=== PATIENT | female | born 1940 | race Caucasian/White ===

== ENCOUNTER 2017-11-06 14:54 | Emergency (ER) | payer MEDICARE, OTHER, SELFPAY ==
[2017-11-06 14:55] VITALS: BP 136/71; PULSE 98; RESP 16; TEMP 36.7; O2SAT 95; BMI 27.4
--- NOTE | 2017-11-06 15:14 | EKG12_ITS ---
Test Reason : AB PAIN Blood Pressure : / mmHG Vent. Rate : 100 BPM Atrial Rate : 100 BPM P-R Int : 138 ms QRS Dur : 076 ms QT Int : 352 ms P-R-T Axes : -07 -28 016 degrees QTc Int : 454 ms Normal sinus rhythm Inferior infarct , age undetermined Abnormal ECG Confirmed by MARIAH LANCE ([id number]), video tape editor REGLA DOE ([id number]) on 11/17/2017 6:22:57 PM Referred By: RAFAEL Confirmed By:MARIAH LANCE
--- NOTE | 2017-11-06 15:15 | RAD_ITS ---
STUDY: X-RAY CHEST REASON FOR EXAM: Female, 77 years old. Weakness. TECHNIQUE: Single AP portable view of the chest. COMPARISON: None. FINDINGS: Increased linear markings at the lung bases likely worse on the left side suggestive of linear atelectasis and/or scarring. There is no demonstrated pleural abnormality. There is mild cardiac enlargement. Normal mediastinum and hillary. Normal visualized pulmonary arteries. There is atherosclerotic calcification of the aortic arch with tortuosity. There are degenerative changes of the visualized thoracic spine. Prior vertebroplasty of the T12 vertebrae. Normal visualized ribs, clavicles, and shoulders. There is no demonstrated abnormality of the visualized soft tissue structures of the upper abdomen. RAD/Chest 1 View (Portable) IMPRESSION: Mild degree of increased linear markings at the lung bases slightly worse on the left side suggestive of linear atelectasis and/or scarring. Electronically Signed: Gerard Gonzalez MD at 15:32 EDT Tel [phone], Service support ,
--- NOTE | 2017-11-06 15:35 | CT_ITS ---
STUDY: CT ABDOMEN AND PELVIS WITH CONTRAST REASON FOR EXAM: Female, 77 years old. Left lower quadrant pain RADIATION DOSAGE (If Supplied By Facility): CTDIvol = ( 14.13 ) mGy, DLP = ( 845.92 ) mGycm TECHNIQUE: Transaxial images were obtained from the dome of the diaphragm to the symphysis pubis with oral contrast. 100 ml of Isovue 300 contrast was administered. Sagittal and coronal images were reconstructed. Individualized dose optimization techniques were used for this CT. COMPARISON: 11/06/2016 FINDINGS: There is atelectasis at the lung bases. The visualized portions of the heart and pericardium are within normal limits. There are no calcified gallstones present. The liver is within normal limits. There are no suspicious hepatic lesions. The spleen is normal in size. The pancreas is within normal limits. The adrenal glands are within normal limits. There are no obstructing renal stones. There is no hydronephrosis. There are no focal renal lesions. There is a stable small hiatal hernia. There is no bowel obstruction or inflammation. There are stable colonic diverticula without evidence of diverticulitis. The patient is status post appendectomy. There is a stable small fat-containing umbilical hernia. The aorta is normal in caliber. There is no abdominal or pelvic free air, free fluid, fluid collection or lymphadenopathy. The patient is status post hysterectomy. There are no destructive osseous lesions. There is vertebroplasty cement in the T12 vertebral body. CT/Abdomen/Pelvis WITH Contrast IMPRESSION: No acute abdominal or pelvic pathology. No significant change when compared with 11/06/2016. Electronically Signed: Tenzin Garcia, at 17:43 EDT Tel , Service support ,
[2017-11-06] MEDS: Morphine 4 MG/ML Syringe IV (15:43)
[2017-11-06] MEDS: 0.9% Normal Saline 1,000 ML 150 ML IV (15:43)
[2017-11-06] MEDS: Ondansetron 4 MG/2 ML Vial IV (15:43)
[2017-11-06 15:44] LABS: Absolute Lymphocyte Count 0.63 X10^3/ul (0.83-4.51); Absolute Neutrophil Count 13.1 X10^3/uL (2.0-7.7); Basophil# 0.02 X10^3/uL; Basophil% 0.1 % (0-1); Eosinophil# 0.01 X10^3/uL; Eosinophils% 0.1 % (0-5); Hematocrit 41.3 % (37-47); Hemoglobin 13.8 g/dl (12.0-15.0); Lymphocyte # 0.63 X10^3/ul (4.0); Lymphocyte % 4.3 % (19-41); Mean Corp Hgb Conc 33.4 g/gl (32-36); Mean Corpuscular Hgb 28.4 pg (27.0-32.0); Mean Platelet Vol. 10.4 fl (6.2-12.0); Monocyte# 0.91 X10^3/uL; Monocyte% 6.2 % (0-10); Neutrophil # 13.06 X10^3/uL (2.7-7.7); Neutrophil % 89.1 % (47-70); Platelet Count 291 K/mm3 (150-450); RBC Distribution Width CV 15.5 % (11.6-14.6); RBC Distribution Width SD 47.8 fl (35.1-43.9); Red Blood Count 4.86 M/mm3 (4.2-5.4); White Blood Count 14.7 K/mm3 (4.4-11.0)
[2017-11-06 16:04] LABS: POSITIVE COUNT NO; POSITIVE DIFFERENTIAL NO; POSITIVE MORPHOLOGY NO
[2017-11-06 16:06] LABS: AST(SGOT) 14 U/L (15-37); Alanine Aminotransfer ALT/SGPT 12 U/L (13-56); Albumin, Serum 3.5 g/dL (3.2-5.0); Alkaline Phosphatase 75 U/L (45-117); Anion Gap 6 (5-15); BUN 14 mg/dL (7-18); BUN/Creat Ratio 18.2 RATIO (10-20); Calcium,Total 9.1 mg/dL (8.5-10.1); Chloride 102 mmol/L (98-107); Creatinine, Serum 0.77 mg/dL (0.55-1.02); EST Glomerular Filtration Rate 77 mL/min (>60); Est Glom Filt Rate - Afr Amer 93 mL/min (>60); Estimated Creatinine Clearance 36.08 ml/min; Globulin 3.6 g/dL (2.2-4.2); Glucose 120 mg/dL (74-106); Lipase 55 U/L (73-393); Potassium 3.7 mmol/L (3.5-5.1); Protein, Total 7.1 g/dL (6.4-8.2); Sodium Level 137 mmol/L (136-145); Thyroid Stim Hormone (TSH) 3.35 uIU/mL (0.358-3.74)
[2017-11-06 16:22] LABS: Lactic Acid 1.1 mmol/L (0.4-2.0)
[2017-11-06 17:41] LABS: Bacteria 0 SEEN /hpf (None Seen); Mucous, Urine 0 SEEN /hpf (<or=2+); Red Blood Cells-Urine 0 SEEN /hpf (0-5); Squamous Epithelial Cells - UA 0 SEEN /hpf (5-10); White Blood Cells 0 SEEN /hpf (0-5)
[2017-11-06 18:35] LABS: Color, Urine Yellow (Yellow); Glucose, Dipstick Normal (Normal); Ketone-Dipstick Negative (Negative); Leukocyte Esterase-Dipstick Negative /ul (Negative); Nitrite-Dipstick Negative (Negative); Occult Blood-Urine 10 /ul (Negative); Protein-Dipstick Negative (Negative); Urine Bilirubin Dipstick Negative (Negative); Urine Clarity Clear (Clear); Urine Urobilinogen Normal (Normal)
--- NOTE | 2017-11-06 18:43 | ED.VISSUMM ---
- ER Visit Summary Date of Service: 11/06/17 Chief Complaint: [Abdominal pain and generalized weakness] History of Present Illness: The patient is a 77 F [presents the emergency department with complaint of not feeling well since yesterday. Patient's had some intermittent abdominal discomfort that is diffuse to the lower abdomen. Today while at the [employer] she had a hard time keeping her head up apparently was very weak and needed assistance from her to get into the car. Once at home she sat in the car for about an hour and a half because she was too weak to go inside. Patient denies any chest pain. She denies any shortness of breath. She denies any headaches. She denies focal weakness.] Patient states that her abdominal pains been going on for years and no etiology is ever been found. Patient also states that she was down in [place] earlier in the year and had an episode of weakness like this that lasted about 3 weeks but she did not seek any medical attention. Physical Examination: [HEENT-PERRLA, EOMI. Cranial nerves II through XII grossly intact. TMs clear. Mucous membranes moist. No adenopathy. Cardiovascular-regular rate and rhythm without murmur or ectopy Lungs-clear to auscultation, chest wall stable without crepitus or subcu emphysema Abdomen-normoactive bowel sounds, soft. Mild diffuse tenderness to the lower abdomen left lower quadrant and right lower quadrant as well as suprapubic area. There is no rebound, rigidity, or perineal signs. Extremities-intact ?4, normal range of motion, normal pulses, atraumatic] Test Results: [CBC with differential obtained showed an elevated white count of 14.7, hemoglobin 13.8, hematocrit 41.3, platelets 291. Chemistries unremarkable. LFTs were normal. Urinalysis was normal. Troponin was less than 0.015. EKG obtained arrival shows sinus rhythm with a ventricular rate of 100 bpm with some nonspecific ST changes. TSH was 3.35. CT scan of the abdomen pelvis showed nothing significant.] Emergency Department Course and Treatment: [Patient was able to ambulate in the department without difficulty.] Treatment Plan: [Patient will be discharged home. Patient has a follow-up appointment with her primary care physician on November 13.] Disposition: [Discharged home in stable condition] Impression: [Generalized weakness Abdominal pain-etiology uncertain.] This note was generated with Dragon dictation software. It may contain incorrect words, spelling, and punctuation that were not noted in review of the chart prior to signing ED Disposition - Plan for ED Patient: Chief Complaint: Abd Pain Referrals: Declan Montalvo Chi, MD [Primary Care Provider] -
[2017-11-06 18:46] VITALS: BP 124/96; PULSE 72; RESP 16; O2SAT 96
--- NOTE | 2017-11-06 18:46 | ED.DEP ---
ED Disposition - Plan for ED Patient: Chief Complaint: Abd Pain Instructions: ED Abdominal Pain Unkn Cause, ED Weakness [facility] Referrals: Declan Montalvo Chi, MD [Primary Care Provider] - 5-7 Days
[2017-11-06 18:50] VITALS: BP 124/76; PULSE 72; RESP 16; O2SAT 96
== END 2017-11-06 18:55 | disposition home or self-care (01) ==
PROVIDERS: Emergency Provider Emergency Medicine; Family Provider Family Medicine Geriatric Medicine; PCP Family Medicine Geriatric Medicine
DX: R10.84 Generalized abdominal pain (principal); R53.1 Weakness; I10 Essential (primary) hypertension; E78.00 Pure hypercholesterolemia, unspecified; Z79.899 Other long term (current) drug therapy
CPT/HCPCS: 71045; 74177; 80053; 81001; 83605; 83690; 84443; 84484; 85025; 93005; 96361; 96374; 96375; 99285; J7030; Q9967; A4216; J2405

== ENCOUNTER → 2017-11-18 11:03 | Outpatient (CLI) | payer MEDICARE, OTHER, SELFPAY ==
--- NOTE | 2017-11-18 10:19 | LES_PTH ---
PATIENT: NADEEN SALVADOR LOC: [facility] U#:[id number] AGE/SX: 85/F ROOM: RE11/18/[address]: Dr. Declan Montalvo MD : 1940 BED: DIS: SPEC #: [id number] RECD: 11/18/17 12:33 STATUS: COOPER TANO #: [id number] NICOLAS: 11/18/17 10:[address]: Declan Montalvo Chi DEPT: SURGICAL PATHOLOGY RECD BY: Sam Gray Tissues: Skin of arm Procedures: Surgery Specimen Level IV HEADER OPERATION: Not noted PRE-OP DIAGNOSIS: L98.9 TISSUE SUBMITTED: Right forearm MICROSCOPIC DIAGNOSIS Right forearm lesion, biopsy: Actinic keratosis with moderate to severe squamous atypia with overlying cutaneous horn. Solar elastosis. SJ:diego 11/19/17 COMMENT The lesion appears to be completely excised. Case has been reviewed in consultation with Dr. Villanueva who concurs with the above diagnosis. IDC:AM MICROSCOPIC DESCRIPTION Slides are reviewed. GROSS DESCRIPTION Received is one container labeled with the patient's name and not further designated. The specimen consists of round piece of skin measuring 1.8 x 1.5 x 0.5 cm. There is a raised, cutaneous horn-like brownish-black lesion on the surface measuring 1 x 0.7 x 0.5 cm. The specimen is inked, serially sectioned and submitted entirely in one cassette. / SJ:rg 11/18/17 TC:5 CPT: 44714
== END ==
PROVIDERS: Family Provider Family Medicine Geriatric Medicine; PCP Family Medicine Geriatric Medicine; Visit Provider Family Medicine Geriatric Medicine
DX: L98.9 Disorder of the skin and subcutaneous tissue, unspecified (principal)
CPT/HCPCS: 88305

== ENCOUNTER → 2017-12-05 08:59 | Outpatient (CLI) | payer MEDICARE, OTHER, SELFPAY ==
--- NOTE | 2017-12-05 09:03 | US_ITS ---
STUDY: ABDOMINAL ULTRASOUND - RIGHT UPPER QUADRANT REASON FOR VISIT: Female, 77 years old. Abdominal pain. TECHNIQUE: Ultrasound evaluation of the right upper quadrant was performed with real-time and static felix-scale imaging. TECHNICAL QUALITY: Adequate. COMPARISON: None. FINDINGS: Liver: The liver measures 12.6 cm. There is normal echogenicity of the liver. The bile ducts are within normal limits. There is hepatic color flow. The direction of portal flow is hepatopetal. There is no demonstrated mass lesion. Gallbladder: Normal distended gallbladder. The gallbladder wall measures 2.0 mm. There is a negative sonographic Mccarty's sign. There is no pericholecystic fluid. There are multiple small echogenic structures within the gallbladder, consistent with multiple gallstones. Common Bile Duct (C.B.D.): The common bile duct measures 3.0 mm. Pancreas: Normal size of the head, body and tail of the pancreas. There is normal echogenicity of the pancreas. There is no demonstrated pancreatic mass or cyst. Right Kidney: Normal size of the right kidney. The right kidney measures 9.4 cm x 4.5 cm x 5.6 cm. Normal renal cortex. The right cortex measures 1.5 cm. There is no demonstrated renal mass or cyst. There is no right hydronephrosis. US/Abdomen Limited IMPRESSION: Multiple small gallstones. Electronically Signed: Gerard Gonzalez MD at 15:27 EDT Tel [phone], Service support ,
== END ==
PROVIDERS: Family Provider Family Medicine Geriatric Medicine; PCP Family Medicine Geriatric Medicine; Visit Provider Family Medicine Geriatric Medicine
DX: K80.80 Other cholelithiasis without obstruction (principal)
CPT/HCPCS: 76705

== ENCOUNTER → 2017-12-11 09:44 | Outpatient (CLI) | payer MEDICARE, OTHER, SELFPAY ==
--- NOTE | 2017-12-11 09:45 | NM_ITS ---
CLINICAL: 77 year old female with history of right upper quadrant pain. RADIONUCLIDE HEPATOBILIARY SCINTIGRAPHY COMPARISON: Abdominal ultrasound report 12/05/2017, CT of the abdomen and pelvis report 11/06/2017 FINDINGS: Following the intravenous administration of 5.1 mCi of 99m Tc Mebrofenin, hepatobiliary images reveal: 1. Relatively prompt and homogeneous radiopharmaceutical concentration is noted by a normal sized liver. No parenchymal defects are identified. 2. Gallbladder activity is not identified during 60 minutes of sequential imaging. Gallbladder activity is identified at 120 minutes post radiopharmaceutical provision. 3. Small intestinal tract is observed at 45 minutes post radiopharmaceutical administration. 4. Washout of the radiopharmaceutical by the hepatic parenchyma appears qualitatively normal. NM/Hepatobilliary Img w/Pharm Int IMPRESSION: 1. ABNORMAL 99m Tc Mebrofenin hepatobiliary imaging examination. A. Nonvisualization of the gallbladder at 60 minutes post-radiopharmaceutical administration with visualization noted at 120 minutes post tracer provision is most consistent with a component of chronic cholecystitis in patients who have fasted for more than 4 and less than 24 hours, with an intermediate to high pretest probability of hepatobiliary illness and retained normal hepatocellular function. (Darrius and Juliet Steele, J Nucl Med 21: P17, 1980). Electronically Signed: Larry Haddad DO at 9:58 EDT Tel , Service support ,
== END ==
PROVIDERS: Family Provider Family Medicine Geriatric Medicine; PCP Family Medicine Geriatric Medicine; Visit Provider Family Medicine Geriatric Medicine
DX: R10.13 Epigastric pain (principal)
CPT/HCPCS: 78227; A9537

== ENCOUNTER 2017-12-31 10:30 | Observation (INO) | payer MEDICARE, OTHER, SELFPAY ==
[2017-12-31] VITALS (10 sets, daily range): BP systolic 124–151; BP diastolic 53–83; PULSE 55–81; RESP 16–18; TEMP 36.2–37.2; O2SAT 93–100; BMI 26.6
--- NOTE | 2017-12-31 08:26 | EKG12_ITS ---
Test Reason : PREOP Blood Pressure : / mmHG Vent. Rate : 065 BPM Atrial Rate : 065 BPM P-R Int : 140 ms QRS Dur : 074 ms QT Int : 412 ms P-R-T Axes : 020 -24 -03 degrees QTc Int : 428 ms Normal sinus rhythm Leftward axis Voltage criteria for left ventricular hypertrophy Inferior infarct , age undetermined, cannot be excluded Poor R wave progression Anteroseptal NH, age undetermined, cannot be excluded Abnormal ECG Confirmed by MARTHA BOOTHE, CLEMENT ([id number]), video tape editor REGLA DOE ([id number]) on 01/06/2018 3:45:22 PM Referred By: Jean Pierre Guevara Confirmed By:CLEMENT THOMAS MD
--- NOTE | 2017-12-31 09:30 | RAD_ITS ---
STUDY: INTRAOPERATIVE CHOLANGIOGRAM REASON FOR EXAM: Female, 77 years old. Cholecystectomy RADIATION DOSAGE (If Supplied By Facility): CTDIvol = ( ) mGy, DLP = ( ) mGycm. Individualized dose optimization techniques were used for this CT.? FLUOROSCOPY TIME (if supplied): (0:12) minutes/seconds TECHNIQUE: Exam performed by Dr. Guevara, fluoroscopy assistance by Gerald Keyes COMPARISON: None. FINDINGS: After cholecystectomy, the cystic duct remnant was cannulized, and contrast injected into the biliary tree. There is mild distention of the intra and extrahepatic biliary tree without evidence of retained stone or other filling defect. There is no demonstrated stricture or extravasation of contrast outside the lumen of the biliary tree. There is normal flow of contrast into the duodenum. RAD/Cholangiogram/ O R,Initial IMPRESSION: No evidence of retained stone, stricture, or extravasation of contrast outside the lumen of the biliary tree. Electronically Signed: Zaid Saul MD at 10:39 EDT , Service support ,
--- NOTE | 2017-12-31 10:05 | GALL_PTH ---
PATIENT: NADEEN SALVADOR LOC: MS3 U#:[id number] AGE/SX: 77/F ROOM: GA315 RE12/31/[address]: Dr. Jean Pierre Guevara MD : 1940 BED: 1 DIS: 01/01/2018 SPEC #: [id number] RECD: 12/31/17 14:00 STATUS: COOPER TANO #: [id number] NICOLAS: 12/31/17 10:[address]: Jean Pierre Guevara DEPT: SURGICAL PATHOLOGY RECD BY: Elia Chaney ENTERED: 12/31/17 15:08 SP TYPE: ANAY JORGE DR: Dr. Declan Montalvo MD Tissues: Gallbladder, NOS Procedures: Surgery Specimen Level III HEADER OPERATION: Laparoscopic cholecystectomy with intraoperative cholangiograms PRE-OP DIAGNOSIS: Cholelithiasis TISSUE SUBMITTED: Gallbladder MICROSCOPIC DIAGNOSIS Gallbladder: Chronic cholecystitis and cholelithiasis. SJ:diego 01/01/18 MICROSCOPIC DESCRIPTION Slides are reviewed. GROSS DESCRIPTION Received is one container labeled with the patient's name and designated gallbladder. The specimen consists of a gallbladder measuring 9 cm in length and 3.5 cm in diameter. The external surface is pink-traore, smooth and glistening for the most part. Focally it is granular, hemorrhagic and contains cautery artifact. The gallbladder contains green-yellow mucoid bile and brownish-black stones measuring in aggregate 2.5 x 2.5 x 0.5 cm and <0.1 to 0.3 cm in greatest dimension. A small amount of sludge material is also noted. The mucosa is bile-stained and without any mass lesions. The gallbladder wall measures 0.1 cm in thickness. Caul Fat Puller sections from the gallbladder and the cystic duct are submitted in one cassette. / ANUPAM:diego 12/31/17 TC:3 CPT: 56413
[2017-12-31] MEDS: Bupiv/Epi 0.5% Mpf 30 ML Vial (10:20)
--- NOTE | 2017-12-31 10:31 | PCM.OPRPT ---
Problem List (1) Cholelithiasis Status: Acute Qualifiers: Cholelithiasis location: gallbladder Cholecystitis presence: without cholecystitis Biliary obstruction: without biliary obstruction Qualified Code(s): K80.20 - Calculus of gallbladder without cholecystitis without obstruction Report of Operation Date of Procedure: 12/31/17 Pre-Operative Diagnosis: Cholelithiasis and biliary colic Post-Operative Diagnosis: Same Surgery/Procedure Performed:: Laparoscopic cholecystectomy with cholangiogram Specimen's removed: Gallbladder and contents Description of Procedure: After obtaining informed consent patient was brought back to the operating room. General anesthesia was induced. The abdomen was prepped and draped in usual sterile fashion. A small midline incision was made superior to the umbilicus and deepened to the level of fascia. The fascia was elevated and incised. Next the peritoneum was elevated and incised in the same fashion. Finger sweep was performed and the Sykes trocar was placed into the abdomen. The balloon was inflated. The abdomen was inflated to 15 mmHg. Next a camera was introduced into the abdomen and the abdomen was inspected. Next under direct visualization three 5-mm ports were placed one subxiphoid and 2 subcostal. Next the gallbladder was elevated and retracted toward the right shoulder. The peritoneum was stripped from the gallbladder. The infundibulum was located and retracted laterally. Next the triangle of Calot was dissected and the cystic duct and cystic artery were identified. Cholangiograms were performed. The Barajas catheter was used to clamp across the infundibulum and the needle was inserted into the gallbladder. Under fluoroscopy contrast was instilled into the gallbladder and the common duct, cystic duct as well as proximal hepatic ducts were identified. There was good filling of the duodenum. There were no filling defects noted in the common bile duct. The clamp was removed as well as the needle and the infundibulum was grasped once more. Three hemolock clips were placed across the cystic duct. The cystic duct was then divided leaving 2 clips on the stump. The cystic artery was clipped and divided in the same fashion. The hook cautery was then used to take the gallbladder off of the gallbladder bed. Hemostasis was obtained. Gallbladder fossa was irrigated and no active bleeding or bile leakage was noted. Next the camera switched to a 5 mm camera and introduced in the subxiphoid port. An Endopouch bag was placed through the umbilical port and the gallbladder was placed into it. The gallbladder was then removed through the umbilical incision. The camera was then reinserted through the umbilical port. The gallbladder fossa was inspected and there appeared to be some oozing lower in the fossa. This was packed with Surgicel and the bleeding did stop. The abdomen was suctioned dry the 5 mm ports were removed under direct visualization. The umbilical port was then removed and the air was removed from the abdomen. Next using an 0 Vicryl suture the umbilical fascia was closed in a [id number] fashion. The umbilical port site was irrigated local anesthetic was administered to all the incisions. All the incisions were closed subcuticular 4-0 Monocryl sutures followed by Steri-Strips and dressings. The patient was awoken and taken to PACU in stable condition. - Admit VTE Documentation VTE Mechan Device Prophylaxis: SCD's
[2017-12-31] MEDS: 0.9% Normal Saline 1,000 ML 100 ML IV ×2 (11:02→21:41)
[2017-12-31] MEDS: Morphine 2 MG/ML Syringe IV (13:35)
[2017-12-31] MEDS: HYDROcodone Bitartrate/Apap 5/325 Tablet PO (21:40)
[2017-12-31] MEDS: Docusate Sodium 100 MG Capsule PO (21:40)
[2018-01-01 03:30] VITALS: BP 96/53; PULSE 69; RESP 18; TEMP 36.9; O2SAT 94
[2018-01-01 05:50] LABS: Absolute Lymphocyte Count 1.54 X10^3/ul (0.83-4.51); Absolute Neutrophil Count 4.7 X10^3/uL (2.0-7.7); Basophil# 0.03 X10^3/uL; Basophil% 0.4 % (0-1); Eosinophil# 0.13 X10^3/uL; Eosinophils% 1.8 % (0-5); Hematocrit 35.2 % (37-47); Hemoglobin 11.3 g/dl (12.0-15.0); Lymphocyte # 1.54 X10^3/ul (4.0); Lymphocyte % 20.9 % (19-41); Mean Corp Hgb Conc 32.1 g/gl (32-36); Mean Corpuscular Hgb 27.9 pg (27.0-32.0); Mean Corpuscular Volume 86.9 fL (81-99); Mean Platelet Vol. 10.1 fl (6.2-12.0); Monocyte# 0.93 X10^3/uL; Monocyte% 12.6 % (0-10); Neutrophil # 4.72 X10^3/uL (2.7-7.7); Neutrophil % 64.2 % (47-70); Platelet Count 250 K/mm3 (150-450); RBC Distribution Width CV 14.8 % (11.6-14.6); RBC Distribution Width SD 46.3 fl (35.1-43.9); Red Blood Count 4.05 M/mm3 (4.2-5.4); White Blood Count 7.4 K/mm3 (4.4-11.0)
[2018-01-01 06:10] LABS: POSITIVE COUNT NO; POSITIVE DIFFERENTIAL NO; POSITIVE MORPHOLOGY NO
[2018-01-01 06:12] LABS: Anion Gap 5 (5-15); BUN 11 mg/dL (7-18); BUN/Creat Ratio 16.6 RATIO (10-20); Calcium,Total 8.4 mg/dL (8.5-10.1); Chloride 110 mmol/L (98-107); Creatinine, Serum 0.66 mg/dL (0.55-1.02); EST Glomerular Filtration Rate 92 mL/min (>60); Est Glom Filt Rate - Afr Amer 111 mL/min (>60); Estimated Creatinine Clearance 36.08 ml/min; Glucose 77 mg/dL (74-106); Potassium 3.5 mmol/L (3.5-5.1); Sodium Level 145 mmol/L (136-145)
[2018-01-01] MEDS: 0.9% Normal Saline 1,000 ML 100 ML IV (07:25)
--- NOTE | 2018-01-01 09:23 | DCINST_ITS ---
Discharge Diet: Light diet - advance as tolerated Discharge Activity: Return to Normal Activity May shower in (days): 1 - with the bandage in place. Additional Activity Instructions:: Pain medication may cause nausea. You should typically eat light foods as you take your pain medications. Pain medication may also cause constipation. If this is a problem for you, please discuss with your doctor. Call your doctor if your incision/area has: Continuous Slow Oozing, Sudden Increased Bleeding, Increased Pain/ Swelling, Increased Redness, Foul Smelling Discharge, Fever of 101 or Higher Call your doctor if you observe: Fever of 101 or Higher Suture Line Care: Avoid Pulling/Pushing, Avoid Pinching/Bending Additional Dressing/Incision Instructions:: Leave operative bandaids on for 2 days. When you remove dressing, leave Steri-Strips on until your follow-up appointment, or until the Steri-Strips fall off on their own. Allergies/Adverse Reactions: Allergies No Known Allergies Allergy (Verified 12/24/17 08:42) Medications to take at Discharge Metoprolol(XL)Succ [Toprol Xl (Beta Yasmine)] 100 mg PO DAILY 11/06/17 Docusate Sodium [Colace] 100 mg PO BID capsule 01/01/18 Primary Care Physician: Declan Montalvo Chi, MD [Primary Care Provider] - Test Results: Test results from this visit will be discussed in further detail at your follow- up appointment, if applicable. Please Follow Up With: Jean Pierre Guevara MD When: Please call to schedule 2 week follow up appointment. [phone]
--- NOTE | 2018-01-01 09:23 | PCM.DC.SUM ---
Discharge Date and Diagnosis - Problem List Patient Problems: Active and Suspected Problems (Last Reviewed 12/18/17 @ 10:31 by Cayla Villafana) Cholelithiasis (Acute) Date of Admission: 12/31/17 Date of Discharge: 01/01/18 - Primary Discharge Diagnosis Active and Suspected Problems (Last Reviewed 12/18/17 @ 10:31 by Cayla Villafana) Cholelithiasis (Acute) Hospital Course and Treatment Imaging Results: Clinical Impression(s) from Imaging Studies Cholangiogram 12/31/17 09:30 IMPRESSION: No evidence of retained stone, stricture, or extravasation of contrast outside the lumen of the biliary tree. Electronically Signed: Zaid Saul MD at 10:39 EDT , Service support , Operations: cholecystecomy Procedures: None Summary of Care Provided: The patient is a 77 year old F who came to the hospital for elective cholecystectomy for biliary colic and biliary dyskinesia. The patient was kept for short-term observation due to her age. The following morning the patient was doing well and tolerating a diet. She was discharged home in stable condition. Discharge Diet: Light diet - advance as tolerated Discharge Activity: Return to Normal Activity May shower in (days): 1 - with the bandage in place. Additional Activity Instructions:: Pain medication may cause nausea. You should typically eat light foods as you take your pain medications. Pain medication may also cause constipation. If this is a problem for you, please discuss with your doctor. Call your doctor if your incision/area has: Continuous Slow Oozing, Sudden Increased Bleeding, Increased Pain/ Swelling, Increased Redness, Foul Smelling Discharge, Fever of 101 or Higher Call your doctor if you observe: Fever of 101 or Higher Suture Line Care: Avoid Pulling/Pushing, Avoid Pinching/Bending Additional Dressing/Incision Instructions:: Leave operative bandaids on for 2 days. When you remove dressing, leave Steri-Strips on until your follow-up appointment, or until the Steri-Strips fall off on their own. Home Medications: Medications to take at Discharge Metoprolol(XL)Succ [Toprol Xl (Beta Yasmine)] 100 mg PO DAILY 11/06/17 Docusate Sodium [Colace] 100 mg PO BID capsule 01/01/18 Primary Care Physician: Declan Montalvo Chi, MD [Primary Care Provider] - Please Follow Up With: Jean Pierre Guevara MD When: Please call to schedule 2 week follow up appointment. [phone] Medical Necessity - Tobacco Use Smoking Status: Never smoker Tobacco Use: Non-smoker Meaningful Use Info Meaningful Use Diagnoses (Choose all that apply): None applicable
[2018-01-01 09:43] VITALS: BP 117/68; PULSE 71; RESP 18; TEMP 37; O2SAT 98
[2018-01-01 09:47] VITALS: BP 117/68; PULSE 71
[2018-01-01] MEDS: Metoprolol(XL)Succ 100 MG Tablet PO (09:47)
[2018-01-01] MEDS: Docusate Sodium 100 MG Capsule PO (09:47)
[2018-01-01 10:46] VITALS: BP 117/68; PULSE 71; RESP 18; TEMP 37; O2SAT 98
== END 2018-01-01 10:46 | disposition home or self-care (01) ==
LOC: MS3 13:42 → SDC 01-01 07:27
PROVIDERS: Admitting Provider Surgery; Family Provider Family Medicine Geriatric Medicine; PCP Family Medicine Geriatric Medicine; Visit Provider Surgery
PROC: (CPT 47610; principal; 2017-12-31 09:45)
DX: K80.12 Calculus of gallbladder with acute and chronic cholecystitis without obstruction (principal); E78.00 Pure hypercholesterolemia, unspecified; I10 Essential (primary) hypertension; Z79.899 Other long term (current) drug therapy
CPT/HCPCS: 47563; 36415; 74300; 76000; 80048; 85025; 88304; 93005; 96361; 96374; 97802; 99218; J7030; J7120; G0378; G0379; J2405

== ENCOUNTER → 2018-01-13 11:18 | Outpatient (CLI) | payer MEDICARE, OTHER, SELFPAY ==
[2018-01-13 15:24] LABS: M R Staph aureus DNA By PCR Negative (Negative); Staph aureus DNA By PCR NEGATIVE (Negative)
[2018-01-13 15:25] LABS: Probe Check PASS; Specimen Processing Control PASS
== END ==
PROVIDERS: Family Provider Family Medicine Geriatric Medicine; PCP Family Medicine Geriatric Medicine; Visit Provider Family Medicine Geriatric Medicine
DX: L03.119 Cellulitis of unspecified part of limb (principal); B95.62 Methicillin resistant Staphylococcus aureus infection as the cause of diseases classified elsewhere
CPT/HCPCS: 87070; 87205; 87640

== ENCOUNTER → 2018-05-18 10:02 | Outpatient (CLI) | payer MEDICARE, OTHER, SELFPAY ==
[2018-05-18 13:21] LABS: Vitamin D,25 Hydroxy 32.5 ng/mL (29.95-100.01)
[2018-05-18 13:26] LABS: AST(SGOT) 17 U/L (15-37); Alanine Aminotransfer ALT/SGPT 19 U/L (13-56); Albumin, Serum 3.5 g/dL (3.2-5.0); Alkaline Phosphatase 87 U/L (45-117); Anion Gap 9 (5-15); BUN 17 mg/dL (7-18); BUN/Creat Ratio 20.7 RATIO (10-20); Chloride 102 mmol/L (98-107); Creatinine, Serum 0.82 mg/dL (0.55-1.02); EST Glomerular Filtration Rate 71 mL/min (>60); Est Glom Filt Rate - Afr Amer 86 mL/min (>60); Globulin 3.6 g/dL (2.2-4.2); Glucose 77 mg/dL (74-106); Potassium 4.1 mmol/L (3.5-5.1); Protein, Total 7.1 g/dL (6.4-8.2); Sodium Level 142 mmol/L (136-145); Thyroid Stim Hormone (TSH) 7.68 uIU/mL (0.358-3.74)
[2018-05-18 14:00] LABS: Absolute Lymphocyte Count 1.92 X10^3/ul (0.83-4.51); Absolute Neutrophil Count 3.1 X10^3/uL (2.0-7.7); Basophil# 0.05 X10^3/uL; Basophil% 0.8 % (0-1); Eosinophils% 3.4 % (0-5); Hemoglobin 14.3 g/dl (12.0-15.0); Lymphocyte # 1.92 X10^3/ul (4.0); Lymphocyte % 32.5 % (19-41); Mean Corp Hgb Conc 31.8 g/gl (32-36); Mean Corpuscular Hgb 27.5 pg (27.0-32.0); Mean Corpuscular Volume 86.5 fL (81-99); Mean Platelet Vol. 10.3 fl (6.2-12.0); Monocyte# 0.68 X10^3/uL; Monocyte% 11.5 % (0-10); Neutrophil # 3.05 X10^3/uL (2.7-7.7); Neutrophil % 51.6 % (47-70); Platelet Count 293 K/mm3 (150-450); RBC Distribution Width CV 15.9 % (11.6-14.6); RBC Distribution Width SD 50.7 fl (35.1-43.9); White Blood Count 5.9 K/mm3 (4.4-11.0)
[2018-05-18 14:02] LABS: POSITIVE COUNT NO; POSITIVE DIFFERENTIAL NO; POSITIVE MORPHOLOGY NO
== END ==
PROVIDERS: Family Provider Family Medicine Geriatric Medicine; PCP Family Medicine Geriatric Medicine; Visit Provider Family Medicine Geriatric Medicine
DX: E55.9 Vitamin D deficiency, unspecified (principal); I10 Essential (primary) hypertension
CPT/HCPCS: 36415; 80053; 82306; 84443; 85025

== ENCOUNTER → 2018-11-17 14:00 | Outpatient (CLI) | payer MEDICARE, OTHER, SELFPAY ==
[2017-12-31 11:37] VITALS: BMI 26.6
[2018-11-17 14:40] LABS: Absolute Lymphocyte Count 1.85 X10^3/ul (0.83-4.51); Absolute Neutrophil Count 2.6 X10^3/uL (2.0-7.7); Basophil# 0.04 X10^3/uL; Basophil% 0.8 % (0-1); Eosinophil# 0.17 X10^3/uL; Eosinophils% 3.2 % (0-5); Hematocrit 44.8 % (37-47); Hemoglobin 14.3 g/dl (12.0-15.0); Lymphocyte # 1.85 X10^3/ul (4.0); Lymphocyte % 34.7 % (19-41); Mean Corp Hgb Conc 31.9 g/gl (32-36); Mean Corpuscular Hgb 26.8 pg (27.0-32.0); Mean Corpuscular Volume 84.1 fL (81-99); Mean Platelet Vol. 10.3 fl (6.2-12.0); Monocyte# 0.63 X10^3/uL; Monocyte% 11.8 % (0-10); Neutrophil # 2.63 X10^3/uL (2.7-7.7); Neutrophil % 49.3 % (47-70); Platelet Count 284 K/mm3 (150-450); RBC Distribution Width CV 15.3 % (11.6-14.6); RBC Distribution Width SD 46.7 fl (35.1-43.9); Red Blood Count 5.33 M/mm3 (4.2-5.4); White Blood Count 5.3 K/mm3 (4.4-11.0)
[2018-11-17 14:47] LABS: POSITIVE COUNT NO; POSITIVE DIFFERENTIAL NO; POSITIVE MORPHOLOGY NO
[2018-11-17 15:12] LABS: Vitamin D,25 Hydroxy 25.4 ng/mL (29.95-100.01)
[2018-11-17 15:14] LABS: ALB/GLOB Ratio 0.9 RATIO (0.9-2.4); AST(SGOT) 17 U/L (15-37); Alanine Aminotransfer ALT/SGPT 18 U/L (13-56); Albumin, Serum 3.3 g/dL (3.2-5.0); Alkaline Phosphatase 107 U/L (45-117); Anion Gap 8 (5-15); BUN 17 mg/dL (7-18); BUN/Creat Ratio 19.1 RATIO (10-20); Calcium,Total 9.2 mg/dL (8.5-10.1); Chloride 105 mmol/L (98-107); Creatinine, Serum 0.89 mg/dL (0.55-1.02); EST Glomerular Filtration Rate 65 mL/min (>60); Est Glom Filt Rate - Afr Amer 78 mL/min (>60); Globulin 3.7 g/dL (2.2-4.2); Glucose 106 mg/dL (74-106); Potassium 4.1 mmol/L (3.5-5.1); Sodium Level 144 mmol/L (136-145); Thyroid Stim Hormone (TSH) 2.17 uIU/mL (0.358-3.74)
== END ==
PROVIDERS: Family Provider Family Medicine Geriatric Medicine; PCP Family Medicine Geriatric Medicine; Visit Provider Family Medicine Geriatric Medicine
DX: E55.9 Vitamin D deficiency, unspecified (principal); I10 Essential (primary) hypertension
CPT/HCPCS: 36415; 80053; 82306; 84443; 85025

== ENCOUNTER → 2018-12-23 09:39 | Outpatient (CLI) | payer MEDICARE, OTHER, SELFPAY ==
[2017-12-31 11:37] VITALS: BMI 26.6
[2018-12-23 11:37] LABS: Absolute Lymphocyte Count 1.84 X10^3/uL (0.83-4.51); Basophil# 0.04 X10^3/uL; Basophil% 0.6 % (0-1); Eosinophils% 1.5 % (0-5); Hematocrit 43.8 % (37-47); Hemoglobin 13.9 g/dL (12.0-15.0); Lymphocyte # 1.84 X10^3/ul (4.0); Lymphocyte % 27.3 % (19-41); Mean Corp Hgb Conc 31.7 g/dL (32-36); Mean Corpuscular Hgb 27.6 pg (27.0-32.0); Mean Corpuscular Volume 87.1 fL (81-99); Mean Platelet Vol. 10.6 fl (6.2-12.0); Monocyte# 0.75 X10^3/uL; Monocyte% 11.1 % (0-10); NRBC Flagged by Analyzer 0 % (0-5); Neutrophil # 3.99 X10^3/uL (2.7-7.7); Neutrophil % 59.1 % (47-70); Platelet Count 291 K/mm3 (150-450); RBC Distribution Width CV 14.6 % (11.6-14.6); RBC Distribution Width SD 46.4 fl (35.1-43.9); Red Blood Count 5.03 M/mm3 (4.2-5.4); White Blood Count 6.8 K/mm3 (4.4-11.0)
[2018-12-23 11:49] LABS: ALB/GLOB Ratio 0.8 RATIO (0.9-2.4); AST(SGOT) 11 U/L (15-37); Alanine Aminotransfer ALT/SGPT 16 U/L (13-56); Albumin, Serum 3.3 g/dL (3.2-5.0); Alkaline Phosphatase 97 U/L (45-117); Anion Gap 3 (5-15); BUN 16 mg/dL (7-18); BUN/Creat Ratio 18.8 RATIO (10-20); Calcium,Total 8.9 mg/dL (8.5-10.1); Chloride 103 mmol/L (98-107); Creatinine, Serum 0.85 mg/dL (0.55-1.02); EST Glomerular Filtration Rate 68 mL/min (>60); Est Glom Filt Rate - Afr Amer 83 mL/min (>60); Globulin 3.9 g/dL (2.2-4.2); Glucose 96 mg/dL (74-106); Potassium 3.4 mmol/L (3.5-5.1); Protein, Total 7.2 g/dL (6.4-8.2); Sodium Level 137 mmol/L (136-145)
--- NOTE | 2018-12-23 12:54 | CT_ITS ---
STUDY: CT ABDOMEN AND PELVIS WITH CONTRAST REASON FOR EXAM: Female, 78 years old. Diffuse abdominal pain. RADIATION DOSAGE (If Supplied By Facility): CTDIvol = ( 14.02 ) mGy, DLP = ( 808.98 ) mGycm TECHNIQUE: Transaxial images were obtained from the dome of the diaphragm to the symphysis pubis with oral contrast. 100 IV/Oral Isovue 300 was administered. Sagittal and coronal images were reconstructed. Individualized dose optimization techniques were used for this CT. COMPARISON: Comparison is made with prior study dated November 06, 2017. FINDINGS: Minimal degree of increased markings at the lung bases suggestive of atelectasis. This has improved as compared to prior study. The visualized portions of the heart are within normal limits. Normal liver. The patient is status post cholecystectomy. Normal spleen. Normal pancreas. Normal bilateral adrenal glands. Normal right kidney. Normal left kidney. There is a small hiatal hernia. Normal small intestine. There are multiple colonic diverticula consistent with diverticulosis. There are surgical clips in the region of the appendix consistent with a prior appendectomy. Normal abdominal aorta. Normal inferior vena cava. Normal retroperitoneum. Normal urinary bladder. There is absence of the uterus consistent with a prior hysterectomy. There is a small umbilical hernia containing fat. There are diffuse degenerative changes of the visualized lumbar spine. Prior vertebroplasty of the T12 vertebrae. Almost complete collapse of the T12 vertebrae. CT/Abdomen/Pelvis WITH Contrast IMPRESSION: Small hiatal hernia. Scattered sigmoid diverticula. Electronically Signed: Gerard Gonzalez, at 14:19 EDT , Service support ,
== END ==
LOC: POLAB3 09:40 → CT 12:35
PROVIDERS: Family Provider Family Medicine Geriatric Medicine; PCP Family Medicine Geriatric Medicine; Referring Provider Family Medicine Geriatric Medicine; Visit Provider Family Medicine Geriatric Medicine
DX: K44.9 Diaphragmatic hernia without obstruction or gangrene (principal); K57.30 Diverticulosis of large intestine without perforation or abscess without bleeding; R10.9 Unspecified abdominal pain
CPT/HCPCS: 36415; 74177; 80053; 85025; Q9967

== ENCOUNTER → 2019-05-19 12:45 | Outpatient (CLI) | payer MEDICARE, OTHER, SELFPAY ==
[2019-05-19 14:23] LABS: Absolute Lymphocyte Count 2.02 X10^3/uL (0.83-4.51); Absolute Neutrophil Count 3.3 X10^3/uL (2.0-7.7); Basophil# 0.08 X10^3/uL; Basophil% 1.3 % (0-1); Eosinophil# 0.21 X10^3/uL; Eosinophils% 3.4 % (0-5); Hematocrit 45.2 % (37-47); Hemoglobin 14.1 g/dL (12.0-15.0); Lymphocyte # 2.02 X10^3/ul (4.0); Lymphocyte % 32.4 % (19-41); Mean Corp Hgb Conc 31.2 g/dL (32-36); Mean Corpuscular Hgb 27.3 pg (27.0-32.0); Mean Corpuscular Volume 87.4 fL (81-99); Mean Platelet Vol. 10.6 fl (6.2-12.0); Monocyte# 0.64 X10^3/uL; Monocyte% 10.3 % (0-10); NRBC Flagged by Analyzer 0 % (0-5); Neutrophil # 3.25 X10^3/uL (2.7-7.7); Neutrophil % 52.1 % (47-70); Platelet Count 290 K/mm3 (150-450); RBC Distribution Width CV 15.3 % (11.6-14.6); RBC Distribution Width SD 49.1 fl (35.1-43.9); Red Blood Count 5.17 M/mm3 (4.2-5.4); White Blood Count 6.2 K/mm3 (4.4-11.0)
[2019-05-19 14:24] LABS: Vitamin D,25 Hydroxy 18.3 ng/mL (29.95-100.01)
[2019-05-19 14:32] LABS: ALB/GLOB Ratio 1.1 RATIO (0.9-2.4); AST(SGOT) 17 U/L (15-37); Alanine Aminotransfer ALT/SGPT 21 U/L (13-56); Albumin, Serum 3.6 g/dL (3.2-5.0); Alkaline Phosphatase 105 U/L (45-117); Anion Gap 6 (5-15); BUN 20 mg/dL (7-18); BUN/Creat Ratio 23.1 RATIO (10-20); Calcium,Total 8.8 mg/dL (8.5-10.1); Chloride 104 mmol/L (98-107); Creatinine, Serum 0.87 mg/dL (0.55-1.02); EST Glomerular Filtration Rate 67 mL/min (>60); Est Glom Filt Rate - Afr Amer 81 mL/min (>60); Globulin 3.3 g/dL (2.2-4.2); Glucose 77 mg/dL (74-106); Potassium 3.9 mmol/L (3.5-5.1); Protein, Total 6.9 g/dL (6.4-8.2); Sodium Level 140 mmol/L (136-145); Thyroid Stim Hormone (TSH) 0.59 uIU/mL (0.358-3.74)
== END ==
PROVIDERS: Family Provider Family Medicine Geriatric Medicine; PCP Family Medicine Geriatric Medicine; Visit Provider Family Medicine Geriatric Medicine
DX: I10 Essential (primary) hypertension (principal); E55.9 Vitamin D deficiency, unspecified
CPT/HCPCS: 36415; 80053; 82306; 84443; 85025

== ENCOUNTER 2019-06-11 18:24 | Emergency (ER) | payer MEDICARE, OTHER, SELFPAY ==
[2019-06-11] VITALS (7 sets, daily range): BP systolic 149–151; BP diastolic 88–93; PULSE 79–96; RESP 18; TEMP 37.1; O2SAT 94–96; BMI 30.2
--- NOTE | 2019-06-11 20:33 | RAD_ITS ---
STUDY: X-RAY CHEST REASON FOR EXAM: Female, 79 years old. COUGH TECHNIQUE: Single AP portable view of the chest. COMPARISON: 11/06/2017. FINDINGS: Moderate lung volumes. No infiltrates. Stable probable scarring in the left lung base. No effusions. There is mild cardiac enlargement. Normal mediastinum and hillary. Normal visualized pulmonary arteries. Normal visualized aortic arch and descending thoracic aorta. There are diffuse degenerative changes of the visualized thoracic spine. There is demineralization. There has been kyphoplasty of T12. Normal visualized ribs, clavicles, and shoulders. There is no demonstrated abnormality of the visualized soft tissue structures of the upper abdomen. RAD/Chest 1 View (Portable) IMPRESSION: Incomplete expansion of the lungs. Stable mild scarring in the left lung base. Stable mild cardiomegaly. Electronically Signed: Pierre Gage MD at 20:56 EST , Service support ,
[2019-06-11] MEDS: Ipratropium/Albuterol Sulfate 3 ML AMPUL.NEB INHALATION (20:56)
[2019-06-11] MEDS: predniSONE 20 MG Tablet 40 MG PO (21:48)
[2019-06-11] MEDS: Albuterol 2.5 MG/3 ML VIAL.NEB. INHALATION ×2 (21:52)
--- NOTE | 2019-06-11 22:50 | ED.VISSUMM ---
- ER Visit Summary Date of Service: 06/11/19 Chief Complaint: Cough History of Present Illness: The patient is a 79 F presenting with cough and wheezing. Patient states this started 2 days ago. She denies fever chills. Denies chest pain or shortness of breath. She has had cough productive of clear sputum. She does have sick contacts. She denies difficulty swallowing. She did receive a flu shot this year. She is not a smoker. Denies other complaints. Physical Examination: Vitals are stable. Patient is afebrile. Alert no acute distress. HEENT exam is unremarkable. Neck is supple. Lungs are wheezing bilaterally. Heart is regular rate and rhythm. Abdomen is soft nontender nondistended. Extremities are unremarkable. Skin is warm and dry. No focal neurologic deficit. Remainder of exam is unremarkable. Emergency Department Course and Treatment: Chest x-ray shows incomplete expansion of the lungs. Stable mild scarring in the left lung base. Stable mild cardiomegaly. She was given albuterol, Atrovent aerosols. She was given prednisone. She continues to have wheezing on reexamination. Her ambulatory pulse ox is 95% on room air. Patient has a flight to [place] tomorrow and does not wish to stay in the hospital. Due to her continued wheezing advised admission. She is advised of the risks of leaving AGAINST MEDICAL ADVICE including respiratory failure and . Patient understands these risks and signed out AGAINST MEDICAL ADVICE. Her son is at bedside. She is given an albuterol MDI and prescription for prednisone. She will return to the ED if she has worsening complaints. Advised to follow-up with primary care physician. Disposition: Left AGAINST MEDICAL ADVICE Impression: Bronchitis This note was generated with [employer] dictation software. It may contain incorrect words, spelling, and punctuation that were not noted in review of the chart prior to signing ED Disposition - Plan for ED Patient: Referrals: Declan Montalvo Chi, MD [Primary Care Provider] -
--- NOTE | 2019-06-11 22:55 | ED.DEP ---
ED Disposition - Plan for ED Patient: Instructions: BRONCHITIS with Wheezing (Adult) Prescriptions: Prednisone [Deltasone] 40 mg PO DAILY #10 tablet Referrals: Declan Montalvo Chi, MD [Primary Care Provider] -
== END 2019-06-11 23:36 | disposition left against medical advice (07) ==
PROVIDERS: Emergency Provider Emergency Medicine; Family Provider Family Medicine Geriatric Medicine; PCP Family Medicine Geriatric Medicine
DX: J40 Bronchitis, not specified as acute or chronic (principal); Z53.21 Procedure and treatment not carried out due to patient leaving prior to being seen by health care provider; I10 Essential (primary) hypertension; E03.9 Hypothyroidism, unspecified; Z79.899 Other long term (current) drug therapy
CPT/HCPCS: 71045; 94640; 94760; 99283

== ENCOUNTER → 2019-11-10 16:36 | Outpatient (CLI) | payer MEDICARE, OTHER, SELFPAY ==
[2019-06-11 18:25] VITALS: BMI 30.2
--- NOTE | 2019-11-10 17:05 | RAD_ITS ---
STUDY: X-RAY - ABDOMEN/PELVIS REASON FOR EXAM: Female, 79 years old. fecal impaction TECHNIQUE: AP supine and upright views of the abdomen and pelvis. COMPARISON: Previous study of 04/15/2013 FINDINGS: Normal visualized lung bases. There is an unremarkable bowel gas pattern. There is no demonstrated free abdominal air. The visualized liver, spleen and kidneys are grossly normal in size and morphology. Normal soft tissue structures. There are diffuse degenerative changes of the visualized thoracolumbar spine. 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 RAD/Abd Inc Decub and/or Erect IMPRESSION: The bowel gas pattern is unremarkable. There is actually a paucity of colonic stool. Diffuse degenerative changes of the visualized thoracolumbar spine. 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 Electronically Signed: Jai Parks MD at 19:36 EDT , Service support ,
== END ==
LOC: LABSPEC 16:51 → RAD 16:58
PROVIDERS: PCP Family Medicine Geriatric Medicine; Referring Provider Family Medicine Geriatric Medicine; Visit Provider Family Medicine Geriatric Medicine
DX: N39.0 Urinary tract infection, site not specified (principal); K56.41 Fecal impaction
CPT/HCPCS: 74019; 87077; 87086; 87088; 87186

== ENCOUNTER → 2019-11-16 10:41 | Outpatient (CLI) | payer MEDICARE, OTHER, SELFPAY ==
[2019-06-11 18:25] VITALS: BMI 30.2
[2019-11-16 12:48] LABS: Absolute Lymphocyte Count 1.66 X10^3/uL (0.83-4.51); Basophil# 0.07 X10^3/uL; Basophil% 1.1 % (0-1); Eosinophil# 0.24 X10^3/uL; Eosinophils% 3.6 % (0-5); Hematocrit 42.9 % (37-47); Hemoglobin 13.5 g/dL (12.0-15.0); Lymphocyte # 1.66 X10^3/ul (4.0); Mean Corp Hgb Conc 31.5 g/dL (32-36); Mean Corpuscular Hgb 27.6 pg (27.0-32.0); Mean Corpuscular Volume 87.7 fL (81-99); Mean Platelet Vol. 10.3 fl (6.2-12.0); Monocyte# 0.63 X10^3/uL; Monocyte% 9.5 % (0-10); NRBC Flagged by Analyzer 0 % (0-5); Neutrophil # 4.01 X10^3/uL (2.7-7.7); Neutrophil % 60.3 % (47-70); Platelet Count 441 K/mm3 (150-450); RBC Distribution Width CV 14.9 % (11.6-14.6); RBC Distribution Width SD 47.3 fl (35.1-43.9); Red Blood Count 4.89 M/mm3 (4.2-5.4); White Blood Count 6.6 K/mm3 (4.4-11.0)
[2019-11-16 13:11] LABS: Vitamin D,25 Hydroxy 30.2 ng/mL
[2019-11-16 13:24] LABS: ALB/GLOB Ratio 0.8 RATIO (0.9-2.4); AST(SGOT) 14 U/L (15-37); Alanine Aminotransfer ALT/SGPT 15 U/L (13-56); Albumin, Serum 3.3 g/dL (3.2-5.0); Alkaline Phosphatase 78 U/L (45-117); Anion Gap 7 (5-15); BUN 16 mg/dL (7-18); BUN/Creat Ratio 19.1 RATIO (10-20); Calcium,Total 9.3 mg/dL (8.5-10.1); Chloride 106 mmol/L (98-107); Creatinine, Serum 0.84 mg/dL (0.55-1.02); EST Glomerular Filtration Rate 69 mL/min (>60); Est Glom Filt Rate - Afr Amer 84 mL/min (>60); Globulin 3.9 g/dL (2.2-4.2); Glucose 79 mg/dL (74-106); Potassium 3.6 mmol/L (3.5-5.1); Protein, Total 7.2 g/dL (6.4-8.2); Sodium Level 141 mmol/L (136-145); Thyroid Stim Hormone (TSH) 1.63 uIU/mL (0.358-3.74)
== END ==
PROVIDERS: PCP Family Medicine Geriatric Medicine; Visit Provider Family Medicine Geriatric Medicine
DX: I10 Essential (primary) hypertension (principal); E55.9 Vitamin D deficiency, unspecified
CPT/HCPCS: 36415; 80053; 82306; 84443; 85025

== ENCOUNTER → 2020-03-03 11:03 | Outpatient (CLI) | payer MEDICARE, OTHER, SELFPAY ==
[2019-06-11 18:25] VITALS: BMI 30.2
--- NOTE | 2020-03-03 11:30 | RAD_ITS ---
STUDY: X-RAY - ABDOMEN/PELVIS REASON FOR EXAM: Female, 80 years old. Abd pain 3 months TECHNIQUE: Single AP view of the abdomen / pelvis. COMPARISON: Comparison is made with prior study dated 11/10/2019. FINDINGS: There is an abundance of fecal material throughout the colon. The visualized liver, spleen and kidneys are grossly normal in size and morphology. Normal soft tissue structures. There are diffuse degenerative changes of the visualized lumbar spine. Prior vertebroplasty of the T12 vertebrae. RAD/Abdomen Single View IMPRESSION: Large amount of fecal material is seen in the colon. Electronically Signed: Gerard Gonzalez, at 12:22 EDT , Service support ,
[2020-03-03 12:34] LABS: Absolute Lymphocyte Count 2.19 X10^3/uL (0.83-4.51); Absolute Neutrophil Count 4.1 X10^3/uL (2.0-7.7); Basophil# 0.08 X10^3/uL; Basophil% 1.1 % (0-1); Eosinophil# 0.15 X10^3/uL; Eosinophils% 2.1 % (0-5); Hematocrit 45.4 % (37-47); Hemoglobin 14.3 g/dL (12.0-15.0); Lymphocyte # 2.19 X10^3/ul (4.0); Lymphocyte % 30.2 % (19-41); Mean Corp Hgb Conc 31.5 g/dL (32-36); Mean Corpuscular Hgb 27.4 pg (27.0-32.0); Mean Platelet Vol. 10.5 fl (6.2-12.0); Monocyte# 0.69 X10^3/uL; Monocyte% 9.5 % (0-10); NRBC Flagged by Analyzer 0 % (0-5); Neutrophil # 4.09 X10^3/uL (2.7-7.7); Neutrophil % 56.5 % (47-70); Platelet Count 344 K/mm3 (150-450); RBC Distribution Width CV 15.4 % (11.6-14.6); RBC Distribution Width SD 49.4 fl (35.1-43.9); Red Blood Count 5.22 M/mm3 (4.2-5.4); White Blood Count 7.2 K/mm3 (4.4-11.0)
[2020-03-03 13:00] LABS: ALB/GLOB Ratio 0.8 RATIO (0.9-2.4); AST(SGOT) 20 U/L (15-37); Alanine Aminotransfer ALT/SGPT 20 U/L (13-56); Albumin, Serum 3.4 g/dL (3.2-5.0); Alkaline Phosphatase 77 U/L (45-117); Anion Gap 6 (5-15); BUN 12 mg/dL (7-18); BUN/Creat Ratio 14.4 RATIO (10-20); Calcium,Total 9.4 mg/dL (8.5-10.1); Chloride 105 mmol/L (98-107); Creatinine, Serum 0.83 mg/dL (0.55-1.02); EST Glomerular Filtration Rate 70 mL/min (>60); Est Glom Filt Rate - Afr Amer 85 mL/min (>60); Globulin 4.1 g/dL (2.2-4.2); Glucose 88 mg/dL (74-106); Potassium 4.1 mmol/L (3.5-5.1); Protein, Total 7.5 g/dL (6.4-8.2); Sodium Level 139 mmol/L (136-145)
== END ==
PROVIDERS: PCP Family Medicine Geriatric Medicine; Referring Provider Family Medicine Geriatric Medicine; Visit Provider Family Medicine Geriatric Medicine
DX: R53.83 Other fatigue (principal); R10.9 Unspecified abdominal pain
CPT/HCPCS: 36415; 74018; 80053; 84443; 85025

== ENCOUNTER → 2020-05-23 09:47 | Outpatient (CLI) | payer MEDICARE, OTHER, SELFPAY ==
[2019-06-11 18:25] VITALS: BMI 30.2
[2020-05-23 12:20] LABS: Absolute Lymphocyte Count 1.58 X10^3/uL (0.83-4.51); Absolute Neutrophil Count 2.7 X10^3/uL (2.0-7.7); Basophil# 0.06 X10^3/uL; Basophil% 1.2 % (0-1); Eosinophil# 0.12 X10^3/uL; Eosinophils% 2.4 % (0-5); Hematocrit 43.7 % (37-47); Hemoglobin 13.4 g/dL (12.0-15.0); Lymphocyte # 1.58 X10^3/ul (4.0); Lymphocyte % 32.2 % (19-41); Mean Corp Hgb Conc 30.7 g/dL (32-36); Mean Corpuscular Hgb 26.7 pg (27.0-32.0); Mean Corpuscular Volume 87.2 fL (81-99); Mean Platelet Vol. 10.7 fl (6.2-12.0); Monocyte# 0.44 X10^3/uL; NRBC Flagged by Analyzer 0 % (0-5); Neutrophil # 2.69 X10^3/uL (2.7-7.7); Neutrophil % 54.8 % (47-70); Platelet Count 352 K/mm3 (150-450); RBC Distribution Width CV 14.9 % (11.6-14.6); RBC Distribution Width SD 47.7 fl (35.1-43.9); Red Blood Count 5.01 M/mm3 (4.2-5.4); White Blood Count 4.9 K/mm3 (4.4-11.0)
[2020-05-23 12:38] LABS: Vitamin D,25 Hydroxy 23.7 ng/mL
[2020-05-23 13:05] LABS: ALB/GLOB Ratio 0.9 RATIO (0.9-2.4); AST(SGOT) 11 U/L (15-37); Alanine Aminotransfer ALT/SGPT 13 U/L (13-56); Albumin, Serum 3.4 g/dL (3.2-5.0); Alkaline Phosphatase 70 U/L (45-117); Anion Gap 7 (5-15); BUN 19 mg/dL (7-18); BUN/Creat Ratio 24.2 RATIO (10-20); Calcium,Total 8.9 mg/dL (8.5-10.1); Chloride 108 mmol/L (98-107); Creatinine, Serum 0.79 mg/dL (0.55-1.02); EST Glomerular Filtration Rate 74 mL/min (>60); Est Glom Filt Rate - Afr Amer 90 mL/min (>60); Globulin 3.6 g/dL (2.2-4.2); Glucose 86 mg/dL (74-106); Potassium 3.8 mmol/L (3.5-5.1); Sodium Level 142 mmol/L (136-145); Thyroid Stim Hormone (TSH) 2.48 uIU/mL (0.358-3.74)
== END ==
PROVIDERS: PCP Family Medicine Geriatric Medicine; Visit Provider Family Medicine Geriatric Medicine
DX: E55.9 Vitamin D deficiency, unspecified (principal); I10 Essential (primary) hypertension
CPT/HCPCS: 36415; 80053; 82306; 84443; 85025

== ENCOUNTER 2020-07-21 09:25 | Outpatient (RCR) | payer MEDICARE, SELFPAY ==
[2019-06-11 18:25] VITALS: BMI 30.2
== END 2020-07-21 23:59 ==
LOC: IMMUN 09:25
PROVIDERS: PCP Family Medicine Geriatric Medicine; Referring Provider Family Medicine; Visit Provider Family Medicine
DX: Z23 Encounter for immunization (principal)
CPT/HCPCS: 0011A; 0012A

== ENCOUNTER → 2020-08-22 11:43 | Outpatient (CLI) | payer MEDICARE, SELFPAY ==
[2019-06-11 18:25] VITALS: BMI 30.2
[2020-08-22 12:28] LABS: Absolute Lymphocyte Count 1.97 X10^3/uL (0.83-4.51); Absolute Neutrophil Count 3.5 X10^3/uL (2.0-7.7); Basophil# 0.06 X10^3/uL; Basophil% 0.9 % (0-1); Eosinophil# 0.49 X10^3/uL; Eosinophils% 7.3 % (0-5); Hemoglobin 13.7 g/dL (12.0-15.0); Lymphocyte # 1.97 X10^3/ul (4.0); Lymphocyte % 29.5 % (19-41); Mean Corp Hgb Conc 30.4 g/dL (32-36); Mean Corpuscular Hgb 26.9 pg (27.0-32.0); Mean Corpuscular Volume 88.4 fL (81-99); Mean Platelet Vol. 10.4 fl (6.2-12.0); Monocyte# 0.66 X10^3/uL; Monocyte% 9.9 % (0-10); NRBC Flagged by Analyzer 0 % (0-5); Neutrophil # 3.48 X10^3/uL (2.7-7.7); Neutrophil % 52.1 % (47-70); Platelet Count 353 K/mm3 (150-450); RBC Distribution Width CV 14.9 % (11.6-14.6); RBC Distribution Width SD 48.6 fl (35.1-43.9); Red Blood Count 5.09 M/mm3 (4.2-5.4); White Blood Count 6.7 K/mm3 (4.4-11.0)
[2020-08-22 12:41] LABS: Vitamin D,25 Hydroxy 26.1 ng/mL
[2020-08-22 12:48] LABS: ALB/GLOB Ratio 0.9 RATIO (0.9-2.4); AST(SGOT) 13 U/L (15-37); Alanine Aminotransfer ALT/SGPT 20 U/L (13-56); Albumin, Serum 3.4 g/dL (3.2-5.0); Alkaline Phosphatase 86 U/L (45-117); Anion Gap 4 (5-15); BUN 17 mg/dL (7-18); BUN/Creat Ratio 20.3 RATIO (10-20); Chloride 104 mmol/L (98-107); Creatinine, Serum 0.84 mg/dL (0.55-1.02); EST Glomerular Filtration Rate 69 mL/min (>60); Est Glom Filt Rate - Afr Amer 84 mL/min (>60); Globulin 3.8 g/dL (2.2-4.2); Glucose 83 mg/dL (74-106); Protein, Total 7.2 g/dL (6.4-8.2); Sodium Level 138 mmol/L (136-145); Thyroid Stim Hormone (TSH) 2.93 uIU/mL (0.358-3.74)
== END ==
PROVIDERS: PCP Family Medicine Geriatric Medicine; Visit Provider Family Medicine Geriatric Medicine
DX: E55.9 Vitamin D deficiency, unspecified (principal); I10 Essential (primary) hypertension
CPT/HCPCS: 36415; 80053; 82306; 84443; 85025

== ENCOUNTER → 2020-11-21 11:35 | Outpatient (CLI) | payer MEDICARE, SELFPAY ==
[2019-06-11 18:25] VITALS: BMI 30.2
--- NOTE | 2020-11-21 12:20 | RAD_ITS ---
HISTORY: Abdominal pain. 3 views of the abdomen. Comparison study is March 03, 2020. Findings: Dextroscoliosis is more severe. 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 Chondral cartilage calcification remains. Lung bases otherwise are clear. Hiatal hernia persists. Bowel gas pattern is normal. No organomegaly. Symmetric hip arthritis. Sclerosis at the pubic symphysis. RAD/Abd Inc Decub and/or Erect IMPRESSION: No acute intra-abdominal disease. Chronic osseous disease. at 0421 Reported and signed by: Gus Raygoza MD Electronically Signed: Gus Raygoza MD at 4:27 EDT Tel , Service support ,
[2020-11-21 12:35] LABS: Absolute Lymphocyte Count 1.53 X10^3/uL (0.83-4.51); Absolute Neutrophil Count 10.6 X10^3/uL (2.0-7.7); Basophil# 0.05 X10^3/uL; Basophil% 0.4 % (0-1); Eosinophil# 0.11 X10^3/uL; Eosinophils% 0.8 % (0-5); Hematocrit 54.5 % (37-47); Hemoglobin 14.2 g/dL (12.0-15.0); Lymphocyte # 1.53 X10^3/ul (0.83-4.51); Lymphocyte % 11.7 % (19-41); Mean Corp Hgb Conc 26.1 g/dL (32-36); Mean Corpuscular Volume 107.3 fL (81-99); Mean Platelet Vol. 11.9 fl (6.2-12.0); Monocyte# 0.72 X10^3/uL; Monocyte% 5.5 % (0-10); NRBC Flagged by Analyzer 0 % (0-5); Neutrophil % 81.3 % (47-70); Platelet Count 274 K/mm3 (150-450); Red Blood Count 5.08 M/mm3 (4.2-5.4); White Blood Count 13.1 K/mm3 (4.4-11.0)
[2020-11-21 12:47] LABS: ALB/GLOB Ratio 0.9 RATIO (0.9-2.4); AST(SGOT) 15 U/L (15-37); Alanine Aminotransfer ALT/SGPT 18 U/L (13-56); Albumin, Serum 3.5 g/dL (3.2-5.0); Alkaline Phosphatase 84 U/L (45-117); Anion Gap 6 (5-15); BUN 14 mg/dL (7-18); BUN/Creat Ratio 15.9 RATIO (10-20); Calcium,Total 9.1 mg/dL (8.5-10.1); Chloride 105 mmol/L (98-107); Creatinine, Serum 0.88 mg/dL (0.55-1.02); EST Glomerular Filtration Rate 65 mL/min (>60); Est Glom Filt Rate - Afr Amer 79 mL/min (>60); Globulin 3.7 g/dL (2.2-4.2); Glucose 91 mg/dL (74-106); Potassium 4.1 mmol/L (3.5-5.1); Protein, Total 7.2 g/dL (6.4-8.2); Sodium Level 140 mmol/L (136-145); Thyroid Stim Hormone (TSH) 2.35 uIU/mL (0.358-3.74)
[2020-11-21 13:31] LABS: Vitamin D,25 Hydroxy 26.4 ng/mL
== END ==
PROVIDERS: PCP Family Medicine Geriatric Medicine; Visit Provider Family Medicine Geriatric Medicine
DX: E55.9 Vitamin D deficiency, unspecified (principal); I10 Essential (primary) hypertension; R10.9 Unspecified abdominal pain; N39.0 Urinary tract infection, site not specified
CPT/HCPCS: 36415; 74019; 80053; 82306; 84443; 85025; 87086; 87088

== ENCOUNTER → 2021-02-19 15:39 | Outpatient (CLI) | payer MEDICARE, SELFPAY ==
[2021-02-19 16:45] LABS: Absolute Lymphocyte Count 2.35 X10^3/uL (0.83-4.51); Absolute Neutrophil Count 2.8 X10^3/uL (2.0-7.7); Basophil# 0.06 X10^3/uL; Eosinophil# 0.14 X10^3/uL; Eosinophils% 2.3 % (0-5); Hematocrit 43.7 % (37-47); Hemoglobin 13.3 g/dL (12.0-15.0); Lymphocyte # 2.35 X10^3/ul (0.83-4.51); Lymphocyte % 39.4 % (19-41); Mean Corp Hgb Conc 30.4 g/dL (32-36); Mean Corpuscular Hgb 27.1 pg (27.0-32.0); Mean Corpuscular Volume 89.2 fL (81-99); Mean Platelet Vol. 10.7 fl (6.2-12.0); Monocyte# 0.57 X10^3/uL; Monocyte% 9.6 % (0-10); NRBC Flagged by Analyzer 0 % (0-5); Neutrophil # 2.83 X10^3/uL (2.7-7.7); Neutrophil % 47.5 % (47-70); Platelet Count 334 K/mm3 (150-450); RBC Distribution Width CV 14.7 % (11.6-14.6); RBC Distribution Width SD 47.8 fl (35.1-43.9)
[2021-02-19 17:29] LABS: Vitamin D,25 Hydroxy 30.1 ng/mL
[2021-02-19 17:43] LABS: ALB/GLOB Ratio 0.8 RATIO (0.9-2.4); AST(SGOT) 14 U/L (15-37); Alanine Aminotransfer ALT/SGPT 17 U/L (13-56); Albumin, Serum 3.2 g/dL (3.2-5.0); Alkaline Phosphatase 88 U/L (45-117); Anion Gap 6 (5-15); BUN 22 mg/dL (7-18); BUN/Creat Ratio 31.6 RATIO (10-20); Calcium,Total 8.9 mg/dL (8.5-10.1); Chloride 103 mmol/L (98-107); EST Glomerular Filtration Rate 85 mL/min (>60); Est Glom Filt Rate - Afr Amer 103 mL/min (>60); Glucose 88 mg/dL (74-106); Potassium 3.7 mmol/L (3.5-5.1); Protein, Total 7.2 g/dL (6.4-8.2); Sodium Level 138 mmol/L (136-145); Thyroid Stim Hormone (TSH) 1.72 uIU/mL (0.358-3.74)
== END ==
PROVIDERS: PCP Family Medicine Geriatric Medicine; Visit Provider Family Medicine Geriatric Medicine
DX: E55.9 Vitamin D deficiency, unspecified (principal); I10 Essential (primary) hypertension
CPT/HCPCS: 36415; 80053; 82306; 84443; 85025

== ENCOUNTER → 2021-05-14 15:43 | Outpatient (CLI) | payer MEDICARE, SELFPAY | PROVIDERS: PCP Family Medicine Geriatric Medicine; Visit Provider Family Medicine Geriatric Medicine | DX: N39.0 Urinary tract infection, site not specified (principal) | CPT/HCPCS: 87077; 87086; 87088; 87186 ==

== ENCOUNTER → 2021-05-24 15:11 | Outpatient (CLI) | payer MEDICARE, SELFPAY ==
[2021-05-24 15:45] LABS: Absolute Lymphocyte Count 2.41 X10^3/uL (0.83-4.51); Absolute Neutrophil Count 3.8 X10^3/uL (2.0-7.7); Basophil# 0.12 X10^3/uL; Basophil% 1.7 % (0-1); Eosinophil# 0.17 X10^3/uL; Eosinophils% 2.3 % (0-5); Hematocrit 45.1 % (37-47); Hemoglobin 14.6 g/dL (12.0-15.0); Lymphocyte # 2.41 X10^3/ul (0.83-4.51); Lymphocyte % 33.2 % (19-41); Mean Corp Hgb Conc 32.4 g/dL (32-36); Mean Corpuscular Hgb 28.2 pg (27.0-32.0); Mean Corpuscular Volume 87.1 fL (81-99); Mean Platelet Vol. 10.6 fl (6.2-12.0); Monocyte# 0.74 X10^3/uL; Monocyte% 10.2 % (0-10); NRBC Flagged by Analyzer 0 % (0-5); Neutrophil % 52.5 % (47-70); Platelet Count 355 K/mm3 (150-450); RBC Distribution Width CV 14.7 % (11.6-14.6); RBC Distribution Width SD 47.4 fl (35.1-43.9); Red Blood Count 5.18 M/mm3 (4.2-5.4); White Blood Count 7.3 K/mm3 (4.4-11.0)
[2021-05-24 16:19] LABS: ALB/GLOB Ratio 0.9 RATIO (0.9-2.4); AST(SGOT) 12 U/L (15-37); Alanine Aminotransfer ALT/SGPT 22 U/L (13-56); Albumin, Serum 3.4 g/dL (3.2-5.0); Alkaline Phosphatase 81 U/L (45-117); Anion Gap 6 (5-15); BUN 17 mg/dL (7-18); BUN/Creat Ratio 19.7 RATIO (10-20); Calcium,Total 8.9 mg/dL (8.5-10.1); Chloride 106 mmol/L (98-107); Creatinine, Serum 0.86 mg/dL (0.55-1.02); EST Glomerular Filtration Rate 67 mL/min (>60); Est Glom Filt Rate - Afr Amer 81 mL/min (>60); Globulin 3.7 g/dL (2.2-4.2); Glucose 86 mg/dL (74-106); Potassium 4.1 mmol/L (3.5-5.1); Protein, Total 7.1 g/dL (6.4-8.2); Sodium Level 142 mmol/L (136-145); Thyroid Stim Hormone (TSH) 1.17 uIU/mL (0.358-3.74)
== END ==
PROVIDERS: PCP Family Medicine Geriatric Medicine; Visit Provider Family Medicine Geriatric Medicine
DX: E55.9 Vitamin D deficiency, unspecified (principal); I10 Essential (primary) hypertension
CPT/HCPCS: 36415; 80053; 82306; 84443; 85025

== ENCOUNTER → 2021-11-22 | Outpatient (CLI) | payer MEDICARE, SELFPAY ==
[2021-11-22 15:15] LABS: Absolute Lymphocyte Count 2.44 X10^3/uL (0.83-4.51); Absolute Neutrophil Count 3.9 X10^3/uL (2.0-7.7); Basophil# 0.06 X10^3/uL; Basophil% 0.8 % (0-1); Eosinophil# 0.12 X10^3/uL; Eosinophils% 1.7 % (0-5); Hematocrit 44.1 % (37-47); Lymphocyte # 2.44 X10^3/ul (0.83-4.51); Lymphocyte % 33.8 % (19-41); Mean Corp Hgb Conc 31.7 g/dL (32-36); Mean Corpuscular Hgb 27.7 pg (27.0-32.0); Mean Corpuscular Volume 87.3 fL (81-99); Mean Platelet Vol. 10.7 fl (6.2-12.0); Monocyte% 9.7 % (0-10); NRBC Flagged by Analyzer 0 % (0-5); Neutrophil # 3.87 X10^3/uL (2.7-7.7); Neutrophil % 53.6 % (47-70); Platelet Count 308 K/mm3 (150-450); RBC Distribution Width CV 14.6 % (11.6-14.6); Red Blood Count 5.05 M/mm3 (4.2-5.4); White Blood Count 7.2 K/mm3 (4.4-11.0)
[2021-11-22 16:07] LABS: Vitamin D,25 Hydroxy 28.1 ng/mL
[2021-11-22 16:26] LABS: ALB/GLOB Ratio 0.9 RATIO (0.9-2.4); AST(SGOT) 14 U/L (15-37); Alanine Aminotransfer ALT/SGPT 16 U/L (13-56); Albumin, Serum 3.4 g/dL (3.2-5.0); Alkaline Phosphatase 85 U/L (45-117); Anion Gap 6 (5-15); BUN 19 mg/dL (7-18); Calcium,Total 9.1 mg/dL (8.5-10.1); Chloride 106 mmol/L (98-107); Creatinine, Serum 0.91 mg/dL (0.55-1.02); EST Glomerular Filtration Rate 63 mL/min (>60); Est Glom Filt Rate - Afr Amer 76 mL/min (>60); Globulin 3.9 g/dL (2.2-4.2); Glucose 85 mg/dL (74-106); Potassium 3.7 mmol/L (3.5-5.1); Protein, Total 7.3 g/dL (6.4-8.2); Sodium Level 141 mmol/L (136-145); Thyroid Stim Hormone (TSH) 0.01 uIU/mL (0.358-3.74)
== END | disposition home or self-care (01) ==
LOC: POLAB3 14:05
PROVIDERS: PCP Family Medicine Geriatric Medicine; Visit Provider Family Medicine Geriatric Medicine
DX: E55.9 Vitamin D deficiency, unspecified (principal); I10 Essential (primary) hypertension
CPT/HCPCS: 36415; 80053; 82306; 84443; 85025

== ENCOUNTER → 2022-01-01 | Outpatient (CLI) | payer MEDICARE, SELFPAY | END | disposition home or self-care (01) | LOC: POLAB3 16:41 → LABSPEC 16:42 | PROVIDERS: PCP Family Medicine Geriatric Medicine; Visit Provider Family Medicine Geriatric Medicine | DX: N39.0 Urinary tract infection, site not specified (principal) | CPT/HCPCS: 87077; 87086; 87088; 87186 ==

== ENCOUNTER → 2022-03-08 | Outpatient (CLI) | payer MEDICARE, SELFPAY ==
[2022-03-08 11:06] LABS: Thyroid Stim Hormone (TSH) 0.16 uIU/mL (0.358-3.74)
== END | disposition home or self-care (01) ==
LOC: LAB 09:44
PROVIDERS: PCP Family Medicine Geriatric Medicine; Visit Provider Family Medicine Geriatric Medicine
DX: E11.22 Type 2 diabetes mellitus with diabetic chronic kidney disease (principal); N18.30 Chronic kidney disease, stage 3 unspecified
CPT/HCPCS: 36415; 84443

== ENCOUNTER → 2022-06-13 | Outpatient (CLI) | payer MEDICARE, SELFPAY ==
[2022-06-13 17:02] LABS: Absolute Neutrophil Count 3.9 X10^3/uL (2.0-7.7); Basophil# 0.07 X10^3/uL; Eosinophils% 2.8 % (0-5); Hematocrit 45.9 % (37-47); Hemoglobin 14.7 g/dL (12.0-15.0); Lymphocyte % 31.9 % (19-41); Mean Corpuscular Hgb 28.1 pg (27.0-32.0); Mean Corpuscular Volume 87.8 fL (81-99); Mean Platelet Vol. 11.2 fl (6.2-12.0); Monocyte# 0.72 X10^3/uL; NRBC Flagged by Analyzer 0 % (0-5); Neutrophil % 54.2 % (47-70); Platelet Count 314 K/mm3 (150-450); RBC Distribution Width SD 48.7 fl (35.1-43.9); Red Blood Count 5.23 M/mm3 (4.2-5.4); White Blood Count 7.2 K/mm3 (4.4-11.0)
[2022-06-13 17:15] LABS: Vitamin D,25 Hydroxy 25.5 ng/mL
[2022-06-13 17:27] LABS: ALB/GLOB Ratio 0.9 RATIO (0.9-2.4); AST(SGOT) 10 U/L (15-37); Alanine Aminotransfer ALT/SGPT 19 U/L (13-56); Albumin, Serum 3.5 g/dL (3.2-5.0); Alkaline Phosphatase 79 U/L (45-117); Anion Gap 5 (5-15); BUN 20 mg/dL (7-18); Calcium,Total 9.3 mg/dL (8.5-10.1); Chloride 106 mmol/L (98-107); Creatinine, Serum 0.91 mg/dL (0.55-1.02); EST Glomerular Filtration Rate 63 mL/min (>60); Est Glom Filt Rate - Afr Amer 76 mL/min (>60); Globulin 3.8 g/dL (2.2-4.2); Glucose 87 mg/dL (74-106); Potassium 4.1 mmol/L (3.5-5.1); Protein, Total 7.3 g/dL (6.4-8.2); Sodium Level 140 mmol/L (136-145); Thyroid Stim Hormone (TSH) 0.15 uIU/mL (0.358-3.74)
== END | disposition home or self-care (01) ==
PROVIDERS: PCP Family Medicine Geriatric Medicine; Visit Provider Family Medicine Geriatric Medicine
DX: E55.9 Vitamin D deficiency, unspecified (principal); I10 Essential (primary) hypertension; R30.0 Dysuria
CPT/HCPCS: 36415; 80053; 82306; 84443; 85025; 87077; 87086; 87088; 87186

== ENCOUNTER → 2022-08-06 | Outpatient (CLI) | payer MEDICARE, SELFPAY ==
[2022-08-12 18:58] LABS: Pancreatic Elastase, Fecal > 500 (>200)
[2022-08-12 19:05] LABS: Calprotectin, Stool <16 ug/g (0-120); Fats, Neutral Normal (.); Fats, Total Increased (.)
== END | disposition home or self-care (01) ==
LOC: LABSPEC 14:06
PROVIDERS: PCP Family Medicine Geriatric Medicine; Visit Provider Internal Medicine Gastroenterology
DX: K58.0 Irritable bowel syndrome with diarrhea (principal)
CPT/HCPCS: 82653; 82705; 83993

== ENCOUNTER 2022-08-08 12:28 | Outpatient (CLI) | payer MEDICARE, SELFPAY | END 2022-08-08 23:59 | disposition home or self-care (01) | PROVIDERS: PCP Family Medicine Geriatric Medicine; Visit Provider Internal Medicine Gastroenterology | DX: R19.7 Diarrhea, unspecified (principal); K58.9 Irritable bowel syndrome, unspecified | CPT/HCPCS: 82274; 83630; 87177; 87209; 87329; 87493 ==

== ENCOUNTER → 2022-12-17 | Outpatient (CLI) | payer MEDICARE, SELFPAY ==
[2022-12-17 16:03] LABS: Absolute Lymphocyte Count 1.12 X10^3/uL (0.83-4.51); Absolute Neutrophil Count 5.1 X10^3/uL (2.0-7.7); Basophil# 0.08 X10^3/uL; Basophil% 1.1 % (0-1); Eosinophil# 0.11 X10^3/uL; Eosinophils% 1.5 % (0-5); Hematocrit 47.9 % (37-47); Hemoglobin 15.1 g/dL (12.0-15.0); Lymphocyte # 1.12 X10^3/ul (0.83-4.51); Lymphocyte % 15.7 % (19-41); Mean Corp Hgb Conc 31.5 g/dL (32-36); Mean Corpuscular Volume 88.9 fL (81-99); Mean Platelet Vol. 10.7 fl (6.2-12.0); Monocyte# 0.73 X10^3/uL; Monocyte% 10.2 % (0-10); NRBC Flagged by Analyzer 0 % (0-5); Neutrophil # 5.08 X10^3/uL (2.7-7.7); Neutrophil % 71.2 % (47-70); Platelet Count 286 K/mm3 (150-450); RBC Distribution Width CV 15.2 % (11.6-14.6); RBC Distribution Width SD 49.6 fl (35.1-43.9); Red Blood Count 5.39 M/mm3 (4.2-5.4); White Blood Count 7.1 K/mm3 (4.4-11.0)
[2022-12-17 16:29] LABS: Vitamin D,25 Hydroxy 30.9 ng/mL
[2022-12-17 16:33] LABS: ALB/GLOB Ratio 0.9 RATIO (0.9-2.4); AST(SGOT) 16 U/L (15-37); Alanine Aminotransfer ALT/SGPT 17 U/L (13-56); Albumin, Serum 3.4 g/dL (3.2-5.0); Alkaline Phosphatase 77 U/L (45-117); Anion Gap 6 (5-15); BUN 16 mg/dL (7-18); BUN/Creat Ratio 16.1 RATIO (10-20); Chloride 106 mmol/L (98-107); Creatinine, Serum 0.99 mg/dL (0.55-1.02); EST Glomerular Filtration Rate 56 mL/min (>60); Est Glom Filt Rate - Afr Amer 68 mL/min (>60); Globulin 3.9 g/dL (2.2-4.2); Glucose 113 mg/dL (74-106); Potassium 3.8 mmol/L (3.5-5.1); Protein, Total 7.3 g/dL (6.4-8.2); Sodium Level 140 mmol/L (136-145); Thyroid Stim Hormone (TSH) 0.74 uIU/mL (0.358-3.74)
== END | disposition home or self-care (01) ==
LOC: POLAB3 13:07
PROVIDERS: PCP Family Medicine Geriatric Medicine; Visit Provider Family Medicine Geriatric Medicine
DX: I10 Essential (primary) hypertension (principal); E55.9 Vitamin D deficiency, unspecified
CPT/HCPCS: 36415; 80053; 82306; 84443; 85025

== ENCOUNTER → 2023-06-17 | Outpatient (CLI) | payer MEDICARE, SELFPAY ==
[2023-06-17 11:15] LABS: Absolute Lymphocyte Count 1.61 X10^3/uL (0.83-4.51); Absolute Neutrophil Count 2.9 X10^3/uL (2.0-7.7); Basophil# 0.09 X10^3/uL; Basophil% 1.7 % (0-1); Eosinophil# 0.15 X10^3/uL; Eosinophils% 2.8 % (0-5); Hematocrit 49.1 % (37-47); Hemoglobin 15.4 g/dL (12.0-15.0); Lymphocyte # 1.61 X10^3/ul (0.83-4.51); Lymphocyte % 29.8 % (19-41); Mean Corp Hgb Conc 31.4 g/dL (32-36); Mean Corpuscular Hgb 27.9 pg (27.0-32.0); Mean Corpuscular Volume 89.1 fL (81-99); Mean Platelet Vol. 10.3 fl (6.2-12.0); Monocyte# 0.65 X10^3/uL; NRBC Flagged by Analyzer 0 % (0-5); Neutrophil % 53.5 % (47-70); Platelet Count 290 K/mm3 (150-450); RBC Distribution Width CV 14.5 % (11.6-14.6); RBC Distribution Width SD 47.7 fl (35.1-43.9); Red Blood Count 5.51 M/mm3 (4.2-5.4); White Blood Count 5.4 K/mm3 (4.4-11.0)
[2023-06-17 11:53] LABS: AST(SGOT) 16 U/L (15-37); Alanine Aminotransfer ALT/SGPT 18 U/L (13-56); Albumin, Serum 3.5 g/dL (3.2-5.0); Alkaline Phosphatase 76 U/L (45-117); Anion Gap 7 (5-15); BUN 14 mg/dL (7-18); BUN/Creat Ratio 13.7 RATIO (10-20); Calcium,Total 8.9 mg/dL (8.5-10.1); Chloride 106 mmol/L (98-107); Creatinine, Serum 1.02 mg/dL (0.55-1.02); EST Glomerular Filtration Rate 55 mL/min (>60); Est Glom Filt Rate - Afr Amer 66 mL/min (>60); Globulin 3.6 g/dL (2.2-4.2); Glucose 119 mg/dL (74-106); Potassium 3.7 mmol/L (3.5-5.1); Protein, Total 7.1 g/dL (6.4-8.2); Sodium Level 140 mmol/L (136-145); Thyroid Stim Hormone (TSH) 1.26 uIU/mL (0.358-3.74)
[2023-06-17 13:52] LABS: Vitamin D,25 Hydroxy 29.8 ng/mL
== END | disposition home or self-care (01) ==
LOC: POLAB3 10:15
PROVIDERS: PCP Family Medicine Geriatric Medicine; Visit Provider Family Medicine Geriatric Medicine
DX: I10 Essential (primary) hypertension (principal); E55.9 Vitamin D deficiency, unspecified
CPT/HCPCS: 36415; 80053; 82306; 84443; 85025

== ENCOUNTER → 2023-12-25 | Outpatient (CLI) | payer MEDICARE, SELFPAY ==
[2023-12-25 10:33] LABS: Absolute Neutrophil Count 3.1 X10^3/uL (2.0-7.7); Basophil# 0.08 X10^3/uL; Basophil% 1.4 % (0-1); Eosinophil# 0.19 X10^3/uL; Eosinophils% 3.4 % (0-5); Hematocrit 45.7 % (37-47); Hemoglobin 14.4 g/dL (12.0-15.0); Lymphocyte % 28.5 % (19-41); Mean Corp Hgb Conc 31.5 g/dL (32-36); Mean Corpuscular Hgb 27.4 pg (27.0-32.0); Monocyte# 0.67 X10^3/uL; Monocyte% 11.9 % (0-10); NRBC Flagged by Analyzer 0 % (0-5); Neutrophil # 3.05 X10^3/uL (2.7-7.7); Neutrophil % 54.4 % (47-70); Platelet Count 305 K/mm3 (150-450); RBC Distribution Width CV 14.6 % (11.6-14.6); RBC Distribution Width SD 46.5 fl (35.1-43.9); Red Blood Count 5.25 M/mm3 (4.2-5.4); White Blood Count 5.6 K/mm3 (4.4-11.0)
[2023-12-25 11:37] LABS: ALB/GLOB Ratio 0.9 RATIO (0.9-2.4); AST(SGOT) 19 U/L (15-37); Alanine Aminotransfer ALT/SGPT 14 U/L (13-56); Albumin, Serum 3.3 g/dL (3.2-5.0); Alkaline Phosphatase 85 U/L (45-117); Anion Gap 9 (5-15); BUN 18 mg/dL (7-18); BUN/Creat Ratio 17.6 RATIO (10-20); Calcium,Total 9.1 mg/dL (8.5-10.1); Chloride 105 mmol/L (98-107); Creatinine, Serum 1.02 mg/dL (0.55-1.02); EST Glomerular Filtration Rate 55 mL/min (>60); Est Glom Filt Rate - Afr Amer 66 mL/min (>60); Globulin 3.8 g/dL (2.2-4.2); Glucose 109 mg/dL (74-106); Potassium 3.7 mmol/L (3.5-5.1); Protein, Total 7.1 g/dL (6.4-8.2); Sodium Level 140 mmol/L (136-145); Thyroid Stim Hormone (TSH) 2.03 uIU/mL (0.358-3.74)
== END | disposition home or self-care (01) ==
LOC: POLAB3 08:57
PROVIDERS: PCP Family Medicine Geriatric Medicine; Visit Provider Family Medicine Geriatric Medicine
DX: I10 Essential (primary) hypertension (principal); E55.9 Vitamin D deficiency, unspecified
CPT/HCPCS: 36415; 80053; 82306; 84443; 85025

== ENCOUNTER → 2024-06-24 | Outpatient (CLI) | payer MEDICARE, SELFPAY ==
[2024-06-24 09:28] LABS: Absolute Lymphocyte Count 1.67 X10^3/uL (0.83-4.51); Absolute Neutrophil Count 4.1 X10^3/uL (2.0-7.7); Basophil# 0.07 X10^3/uL; Basophil% 1.1 % (0-1); Eosinophil# 0.17 X10^3/uL; Eosinophils% 2.6 % (0-5); Hematocrit 47.2 % (37-47); Lymphocyte # 1.67 X10^3/ul (0.83-4.51); Lymphocyte % 25.1 % (19-41); Mean Corp Hgb Conc 31.8 g/dL (32-36); Mean Corpuscular Hgb 27.7 pg (27.0-32.0); Mean Corpuscular Volume 87.1 fL (81-99); Mean Platelet Vol. 9.9 fl (6.2-12.0); Monocyte# 0.62 X10^3/uL; Monocyte% 9.3 % (0-10); NRBC Flagged by Analyzer 0 % (0-5); Neutrophil # 4.07 X10^3/uL (2.7-7.7); Neutrophil % 61.1 % (47-70); Platelet Count 320 K/mm3 (150-450); RBC Distribution Width CV 14.6 % (11.6-14.6); RBC Distribution Width SD 46.1 fl (35.1-43.9); Red Blood Count 5.42 M/mm3 (4.2-5.4); White Blood Count 6.7 K/mm3 (4.4-11.0)
[2024-06-24 10:06] LABS: Vitamin D,25 Hydroxy 23.2 ng/mL
[2024-06-24 10:15] LABS: ALB/GLOB Ratio 0.9 RATIO (0.9-2.4); AST(SGOT) 18 U/L (15-37); Alanine Aminotransfer ALT/SGPT 15 U/L (13-56); Albumin, Serum 3.6 g/dL (3.2-5.0); Alkaline Phosphatase 80 U/L (45-117); Anion Gap 9 (5-15); BUN 14 mg/dL (7-18); BUN/Creat Ratio 13.9 RATIO (10-20); Chloride 104 mmol/L (98-107); Creatinine, Serum 1.01 mg/dL (0.55-1.02); EST Glomerular Filtration Rate 55 mL/min (>60); Est Glom Filt Rate - Afr Amer 67 mL/min (>60); Globulin 4.1 g/dL (2.2-4.2); Glucose 122 mg/dL (74-106); Potassium 3.4 mmol/L (3.5-5.1); Protein, Total 7.7 g/dL (6.4-8.2); Sodium Level 141 mmol/L (136-145)
== END | disposition home or self-care (01) ==
LOC: POLAB3 09:18
PROVIDERS: PCP Family Medicine Geriatric Medicine; Visit Provider Family Medicine Geriatric Medicine
DX: I10 Essential (primary) hypertension (principal); E55.9 Vitamin D deficiency, unspecified
CPT/HCPCS: 36415; 80053; 82306; 84443; 85025

== ENCOUNTER → 2024-12-15 | Outpatient (CLI) | payer MEDICARE, SELFPAY ==
[2024-12-15 09:28] LABS: Hematocrit 47.3 % (37-47); Hemoglobin 15.0 g/dL (12.0-15.0); Immature Granulocytes Count 0.030 X10^3/uL (0.0-0.0); Mean Corp Hgb Conc 31.7 g/dL (32-36); Mean Corpuscular Volume 88.4 fL (81-99); Mean Platelet Vol. 10.3 fl (6.2-12.0); NRBC Flagged by Analyzer 0 % (0-5); Platelet Count 360 K/mm3 (150-450); RBC Distribution Width CV 14.1 % (11.6-14.6); RBC Distribution Width SD 45.1 fl (35.1-43.9); Red Blood Count 5.35 M/mm3 (4.2-5.4); White Blood Count 5.3 K/mm3 (4.4-11.0)
[2024-12-15 11:07] LABS: AST(SGOT) 19 U/L (<=31); Alanine Aminotransfer ALT/SGPT 9 U/L (<=34); Albumin, Serum 4.0 g/dL (3.4-4.8); Alkaline Phosphatase 79 U/L (35-104); Anion Gap 15 (5-15); BUN 19 mg/dL (4-19); BUN/Creat Ratio 20.4 RATIO (10-20); Calcium,Total 9.3 mg/dL (7.6-11.0); Carbon Dioxide 22.7 mmol/L (21.0-32.0); Chloride 102 mmol/L (98-108); Globulin 3.4 g/dL (2.2-4.2); Glucose 91 mg/dL (70-99); Potassium 3.5 mmol/L (3.3-5.1); Vitamin D,25 Hydroxy 30.4 ng/mL (30-100)
== END | disposition home or self-care (01) ==
LOC: POLAB3 09:13
PROVIDERS: PCP Family Medicine Geriatric Medicine; Visit Provider Family Medicine Geriatric Medicine
DX: I10 Essential (primary) hypertension (principal); E55.9 Vitamin D deficiency, unspecified
CPT/HCPCS: 36415; 80053; 82306; 84443; 85025